=== PATIENT | male | born 1990 | race Caucasian/White ===

== ENCOUNTER 2016-08-30 00:53 | Emergency (ER) | payer SELFPAY ==
[~2016-08-30] VITALS: Ht 170.2 cm; Wt 86.0 kg
[2016-08-30 00:57] VITALS: TEMP 36.9; Ht 170.2 cm; Wt 86.0 kg
--- NOTE | 2016-08-30 01:12 | EMERGENCY ROOM VISIT NOTE ---
History Report prepared by Baileyibmelissa: Sancho Yates Under the Supervision of: Dr. Karina Swann D.O. First contact with patient: 00:59 Chief Complaint: OVERDOSE (INTENTIONAL) Stated Complaint: OVERDOSE History of Present Illness The patient is a 25 year old male who presents to the Emergency Room with complaints of an acute heroin overdose that occurred just prior to arrival. The time of ingestion was unknown. The patient was found to be cyanotic and not breathing by friends. Police arrived and gave to patient Narcan. He was given more Narcan by EMS en route to the ED. The patient states that he took two doses of heroin: one IV and one nasal. He was also drinking alcohol tonight and states that he had a good amount. He states that he was not making a suicide attempt. He denies any symptoms including chest pain, shortness of breath, or nausea. He has a history of drug abuse but has never been given Narcan before. He states that he has not used in a while. 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 He is not originally from the area. Source of History: patient, EMS Onset: just prior to arrival Position: other (global) Quality: other (heroin overdose) Timing: other (acute) Associated Symptoms: No SOB, No chest pain, No nausea Review of Systems See HPI for pertinent positives & negatives. A total of 10 systems reviewed and were otherwise negative. Past Medical & Surgical Medical Problems: (1) Alcoholic intoxication Family History FH: kidney disease Social History Smoking Status: Never Smoker Alcohol Use: heavy Drug Use: heroin Marital Status: single Occupation Status: employed Current/Historical Medications No Active Prescriptions or Reported Meds Allergies Coded Allergies: Shellfish (Unverified Allergy, Mild, ALLERGY, 08/30/16) Codeine (Unverified Adverse Reaction, Mild, PT STATES GOES OFF THE WALL, ) Physical Exam Vital Signs Date Time Temp Pulse Resp B/P Pulse Ox O2 Delivery O2 Flow Rate FiO2 08/30/16 03:36 84 18 106/53 93 Room Air 08/30/16 03:01 93 15 118/50 95 08/30/16 02:00 99/57 08/30/16 01:53 93 15 97 Nasal Cannula 2.0 08/30/16 01:30 117/63 08/30/16 01:23 91 17 97 08/30/16 01:10 95 Nasal Cannula 2.0 08/30/16 01:09 90 16 141/87 90 Room Air 08/30/16 01:01 99 08/30/16 01:00 141/87 08/30/16 00:57 36.9 97 16 148/86 94 Room Air 08/30/16 00:55 148/86 Physical Exam General: Smells of alcohol, slow to answer questions. HEENT: Head - normocephalic and atraumatic Pupils are 2 mm and reactive to light. Extraocular eye muscles are intact, and sclera are anicteric. Nose - moist nasal mucosa without discharge. Mouth - moist buccal mucosa. Oropharynx is nonerythematous and there is no tonsillar exudate or edema noted. Neck: Supple; no JVD, nuchal rigidity, cervical lymphadenopathy. Heart: Regular rate and rhythm. There is a normal S1 and S2 with no murmurs, clicks, or gallops appreciated. Lungs: Clear to auscultation bilaterally with no wheezes, rales, or rhonchi. Abdomen: Soft, completely nontender, nondistended, with good bowel sounds. There are no palpable pulsatile masses or hepatosplenomegaly. There is no guarding, rigidity, or rebound noted. Extremities: No evidence of cyanosis, clubbing, or edema. There are easily palpable peripheral pulses. Fresh track jacky right AC space. Skin: warm and dry with good turgor and no rashes. Medical Decision & Procedures Laboratory Results 08/30/16 01:15 Red Blood Count 4.67, Mean Corpuscular Volume 92.1, Mean Corpuscular Hemoglobin 30.6, Mean Corpuscular Hemoglobin Concent 33.3, Mean Platelet Volume 10.5, Neutrophils (%) (Auto) 50.1, Lymphocytes (%) (Auto) 39.7, Monocytes (%) (Auto) 5.2, Eosinophils (%) (Auto) 4.5, Basophils (%) (Auto) 0.1, Neutrophils # (Auto) 3.88, Lymphocytes # (Auto) 3.08, Monocytes # (Auto) 0.40, Eosinophils # (Auto) 0.35, Basophils # (Auto) 0.01 08/30/16 01:15 Test 08/30/16 01:15 White Blood Count 7.75 K/uL (4.8-10.8) Red Blood Count 4.67 M/uL (4.7-6.1) Hemoglobin 14.3 g/dL (14.0-18.0) Hematocrit 43.0 % (42-52) Mean Corpuscular Volume 92.1 fL (80-100) Mean Corpuscular Hemoglobin 30.6 pg (25-34) Mean Corpuscular Hemoglobin Concent 33.3 g/dl (32-36) Platelet Count 177 K/uL (130-400) Mean Platelet Volume 10.5 fL (7.4-10.4) Neutrophils (%) (Auto) 50.1 % Lymphocytes (%) (Auto) 39.7 % Monocytes (%) (Auto) 5.2 % Eosinophils (%) (Auto) 4.5 % Basophils (%) (Auto) 0.1 % Neutrophils # (Auto) 3.88 K/uL (1.4-6.5) Lymphocytes # (Auto) 3.08 K/uL (1.2-3.4) Monocytes # (Auto) 0.40 K/uL (0.11-0.59) Eosinophils # (Auto) 0.35 K/uL (0-0.5) Basophils # (Auto) 0.01 K/uL (0-0.2) RDW Standard Deviation 42.8 fL (36.4-46.3) RDW Coefficient of Variation 12.8 % (11.5-14.5) Immature Granulocyte % (Auto) 0.4 % Immature Granulocyte # (Auto) 0.03 K/uL (0.00-0.02) Anion Gap 10.0 mmol/L (3-11) Est Creatinine Clear Calc Drug Dose 106.6 ml/min Estimated GFR () 106.8 Estimated GFR (Non- 92.2 BUN/Creatinine Ratio 17.1 (10-20) Calcium Level 8.2 mg/dl (8.5-10.1) Total Bilirubin 0.2 mg/dl (0.2-1) Direct Bilirubin < 0.1 mg/dl (0-0.2) Aspartate Amino Transf (AST/SGOT) 50 U/L (15-37) Alanine Aminotransferase (ALT/SGPT) 156 U/L (12-78) Alkaline Phosphatase 113 U/L (45-117) Total Protein 7.2 gm/dl (6.4-8.2) Albumin 3.9 gm/dl (3.4-5.0) Salicylates Level < 1.7 mg/dl (2.8-20) Acetaminophen Level < 2 ug/ml (10-30) Ethyl Alcohol mg/dL 133.0 mg/dl (0-3) Laboratory results per my review. ED Course 0058: Past medical records reviewed. The patient was evaluated in room A3. A complete history and physical exam was performed. Labs were drawn as above. The patient was observing the surveillance system monitor and pulse oximeter. 0138: Reassessed the patient. He is now asleep and was difficult to rouse. His 02 saturation dropped to 90 so he was started on oxygen. The patient is being watched closely for further respiratory depression or apnea. 0240: The patient was unresponsive when I checked on him. His pupils were 2mm. Vitals signs completely stable with an O2 saturation at 97%. 0314: The patient is awake. Oxygen saturation was 95% on RA. 0330: The patient is fully awake. He is able to communicate easily and no longer appears sleepy. The patient case manager spoke to him about drug and alcohol resources. 0340: Reassessed the patient. Discussed the discharge instructions with him. He verbalized understanding and agreement of the treatment plan. The patient is ready for discharge. Medical Decision The patient is a 25 year old male who presents to the ED with heroin overdose. Differential diagnosis includes suicide attempt, unintentional overdose, respiratory arrest. Laboratory interpretation: No leukocytosis, stable H&H, potassium 3.2, BUN 19, creatinine 1.1, glucose 132, AFT 50, ALT 156, alcohol 133, negative Tylenol and Aspirin. This is a 25 showed male patient who drank some alcohol this evening and then used IV and intranasal heroin. He was found to be cyanotic by friends and 911 was called. The patient received intranasal Narcan and IV Narcan and presented to the emergency department with stable vital signs. The patient denies that this was a suicide attempt. He was offered information on drug and alcohol counseling and rehabilitation for opiate abuse. I spent a great of time talking to the patient about the dangers of IV opiates and alcohol use. I also explained to him that he could obtain a dosage of Naloxone from a local pharmacy. The patient was observed here in the emergency department for more than 2 hours. The half-life of naloxone is between 30 and 80 minutes. I felt it was safe for the patient to be discharged at this time. He was fully awake and alert. He had stable vital signs. Impression Primary Impression: Heroin overdose Additional Impression: Alcohol intoxication Scribe Attestation The scribe's documentation has been prepared under my direction and personally reviewed by me in its entirety. I confirm that the note above accurately reflects all work, treatment, procedures, and medical decision making performed by me. Departure Information Dispostion Home / Self-Care Prescriptions No Active Prescriptions or Reported Meds Referrals No Doctor, Assigned (PCP) Forms HOME CARE DOCUMENTATION FORM, IMPORTANT VISIT INFORMATION, WORK / SCHOOL INSTRUCTIONS Patient Instructions ED Overdose Alcohol, ED Overdose Opiate, My [facility] Additional Instructions Avoid excessive alcohol use in the future, You should never combine alcohol and opiates. You may have tonight if your friends had not called 911. Heroin abuse is very dangerous and may lead to . You may purchase naloxone at any pharmacy without a prescription Problem Qualifiers
[2016-08-30 01:40] LABS: BASO % 0.1 %; BASO ABS # 0.01 K/uL (0-0.2); COMPLETE YES; EOS % 4.5 %; IG% 0.4 %; LYMPH % 39.7 %; LYMPH ABS # 3.08 K/uL (1.2-3.4); MEAN CELL VOLUME 92.1 fL (80-100); MEAN CORPUSCULAR HEMOGLOBIN 30.6 pg (25-34); MEAN CORPUSCULAR HGB CONC 33.3 g/dl (32-36); MEAN PLATELET VOLUME 10.5 fL (7.4-10.4); MONO % 5.2 %; NEUT % 50.1 %; PLATELET COUNT 177 K/uL (130-400); RED BLOOD COUNT 4.67 M/uL (4.7-6.1); WHITE BLOOD COUNT 7.75 K/uL (4.8-10.8)
[2016-08-30 01:57] LABS: ALT/SGPT 156 U/L (12-78); AST/SGOT 50 U/L (15-37); BLOOD UREA NITROGEN 19 mg/dl (7-18); BUN/CREATININE RATIO 17.1 (10-20); CALCIUM 8.2 mg/dl (8.5-10.1); CARBON DIOXIDE 26 mmol/L (21-32); CHLORIDE 108 mmol/L (98-107); GLUCOSE 132 mg/dl (70-99); POTASSIUM 3.2 mmol/L (3.5-5.1); SODIUM 144 mmol/L (136-145)
[2016-08-30 02:00] LABS: ALKALINE PHOSPHATASE 113 U/L (45-117)
[2016-08-30 02:08] LABS: ACETAMINOPHEN < 2 ug/ml (10-30)
[2016-08-30 03:36] VITALS: BP 106/53; PULSE 84; O2SAT 93
== END 2016-08-30 03:50 | disposition home or self-care (01) ==
LOC: EDBD 00:53 → C.EDA 00:54
DX: T40.1X1A Poisoning by heroin, accidental (unintentional), initial encounter (principal); F10.129 Alcohol abuse with intoxication, unspecified; Z84.1 Family history of disorders of kidney and ureter